=== PATIENT | male | born 1990 | race African-American/Black ===

== ENCOUNTER 2024-05-31 18:43 | Emergency (ER) | payer SELFPAY ==
--- NOTE | ~2024-05-31 | CT_ITS ---
EXAMINATION: CT abdomen pelvis w con DATE: 05/31/2024 20:23 INDICATION: Abdominal pain. TECHNIQUE: Computed tomography (CT) of the abdomen and pelvis was performed with 100 mL Omnipaque 350 intravenous contrast. Automated exposure control and iterative reconstruction technique were employe d. The dose-length product was 395.19 mGy-cm. COMPARISON: None. FINDINGS: The visualized portions of the lung bases demonstrate mild atelectasis. No pleural effusion . The heart size is normal. No pericardial effusion. The liver, gallbladder, spleen, pancreas, adrena l glands, and kidneys are normal. There are no dilated loops of bowel. There is diverticulosis of the colon without evidence of diverticulitis. The appendix is normal. There are no pathologically enlarg ed lymph nodes. There is no free intraperitoneal fluid. There is mild thoracic and lumbar spondylosis . IMPRESSION: 1. No etiology for the patient's symptoms. Reviewed, dictated and finalized at location A. [employer]
[2024-05-31 18:47] VITALS: BP 151/99; PULSE 132; RESP 18; TEMP 36.7; O2SAT 100
--- NOTE | 2024-05-31 19:15 | ED.GENADULT ---
HPI - General Adult General Chief complaint: Abdominal Pain Stated complaint: Abdominal pain Time Seen by Provider: 05/31/24 18:58 History of Present Illness HPI narrative: 33-year-old male presents emergency department for evaluation for diffuse abdominal pain. Patient reports he does have a prior history of colitis. Patient states that he has had worsened left upper quadrant abdominal pain. Patient states he does not drink alcohol very frequently, denies frequent NSAID use. Related Data Allergies Allergy/AdvReac Type Severity Reaction Status Date / Time No Known Allergies Allergy Verified 05/31/24 18:46 Review of Systems Review of Systems: All systems reviewed & are unremarkable except as noted in HPI and below Exam Narrative: APPEARANCE: Well appearing, no pain, no distress, well-nourished. HEAD: normocephalic, atraumatic. EYES: PERRLA/EOMI, conjunctivae clear. NOSE: Normal no drainage EARS:TMS clear with good light reflex. THROAT: Pharynx clear, no exudate. NECK: Supple. No adenopathy, no masses. RESPIRATORY: Airway patent, respirations nonlabored. Clear to auscultation bilaterally, no rales, rhonchi, wheezing. CARDIOVASCULAR: Regular rate and rhythm without murmurs rubs or gallops. ABDOMINAL: Soft, nontender, nondistended, normal bowel sounds MUSCULOSKELETAL: Moves all extremities. Strength/ROM intact, No edema, No calf tenderness. NEURO: Alert. Cranial nerves II through XII intact. Grossly intact SKIN: Warm, dry. Normal Color Course Vital Signs Vital signs: Vital Signs Temperature 98.0 F 05/31/24 18:47 Pulse Rate 132 H 05/31/24 18:47 Respiratory Rate 18 05/31/24 18:47 Blood Pressure 151/99 H 05/31/24 18:47 Pulse Oximetry 100 05/31/24 18:47 Oxygen Delivery Room Air 05/31/24 18:47 Temperature 98.0 F 05/31/24 18:47 Pulse Rate 132 H 05/31/24 18:47 Respiratory Rate 18 05/31/24 18:47 Blood Pressure 151/99 H 05/31/24 18:47 Pulse Oximetry 100 05/31/24 18:47 Oxygen Delivery Room Air 05/31/24 18:47 Medical Decision Making [facility] Narrative Medical decision making narrative: 33-year-old male presents emergency department for evaluation for abdominal swelling. Patient states he was diagnosed with colitis previously and feels that his symptoms are worsening. Patient complains of upper abdominal swelling. Patient denies any change in bowel or bladder habits. Patient is afebrile with no leukocytosis and hemoglobin 15. Patient has no acute abnormalities on his CMP lipase is negative. CT abdomen pelvis showed no acute abnormalities. Differential Diagnosis Differential Diagnosis: Colitis, diverticulitis gastritis, acute cholecystitis Vital Signs Vital Signs: Vital Signs Temperature 98.0 F 05/31/24 18:47 Pulse Rate 132 H 05/31/24 18:47 Respiratory Rate 18 05/31/24 18:47 Blood Pressure 151/99 H 05/31/24 18:47 Pulse Oximetry 100 05/31/24 18:47 Oxygen Delivery Room Air 05/31/24 18:47 Temperature 98.0 F 05/31/24 18:47 Pulse Rate 132 H 05/31/24 18:47 Respiratory Rate 18 05/31/24 18:47 Blood Pressure 151/99 H 05/31/24 18:47 Pulse Oximetry 100 05/31/24 18:47 Oxygen Delivery Room Air 05/31/24 18:47 Lab Data Lab results reviewed: Yes I reviewed the patient's lab results. 05/31/24 19:38 05/31/24 19:38 Labs: Lab Results 05/31/24 Range/Units 19:38 WBC 5.8 (4.5-10.0) K/mm3 RBC 6.74 H (4.6-6.20) M/mm3 Hgb 15.0 (14.0-18.0) g/dL Hct 48.3 (42.0-52.0) % MCV 71.7 L (80-100) fl MCH 22.3 L (26-34) pg MCHC 31.1 L (32-36) g/dl RDW 18.3 H (11.5-14.5) % Plt Count 422 H (150-375) k/mm3 MPV 11.1 H (7.4-10.4) fl Immature Gran % (Auto) 0.2 (0-0.5) % Neut % (Auto) 51.8 (45.5-73.1) % Lymph % (Auto) 33.6 (18.3-44.2) % [place] % (Auto) 6.0 (2.6-8.5) % Eos % (Auto) 7.7 H (0-4.4) % Baso % (Auto) 0.7 (0.2-1.2) % Lymph # (Auto) 1.95 (0.9-3.2) K/mm3 [place] # (Auto) 0.4 (0.1-0.6) K/mm3 Eos # (Auto) 0.5 H (0-0.3) K/mm3 Baso # (Auto) 0.0 (0.0-0.1) K/mm3 Abs Immat Gran (auto) 0.01 (0.00-0.031) K/mm3 Absolute Neuts (auto) 3.0 (1.3-6.7) K/mm3 Absolute Nucleated RBC 0.000 (0.0-0.012) K/mm3 Nucleated RBC % 0.0 (0.0-0.2) % Platelet Estimate Increased (Adequate) Anisocytosis 1+ Schistocytes None seen PT 14.0 (11.1-14.7) Seconds INR 1.0 APTT 28.3 (22.3-36.8) Seconds Sodium 140 (137-145) mmol/L Potassium 4.5 (3.4-5.0) mmol/L Chloride 106 (98-107) mmol/L Carbon Dioxide 28 (22-30) mmol/L Anion Gap 6 (4-12) mmol/L BUN 11 (9-20) mg/dL Creatinine 1.40 H (0.7-1.3) mg/dL Estim Creat Clear Calc 68 ml/min Estimated GFR > 60 (59 - ) Glucose 98 (65-110) mg/dL Lactic Acid 1.1 (0.7-2.0) mmol/L Calcium 9.9 (8.4-10.2) mg/dL Total Bilirubin 0.5 (0.2-1.3) mg/dL AST 41 (17-59) U/L ALT 37 (6-50) U/L Alkaline Phosphatase 64 (38-126) U/L Total Protein 8.0 (6.3-8.2) g/dL Albumin 4.9 (3.5-5.1) g/dL Lipase 63 (23-300) U/L Discharge Plan Discharge Clinical Impression: Abdominal pain Patient Disposition: Home, Self-Care Condition: Stable Instructions: Antibiotic Form, Abdominal Pain (ED) Additional Instructions: Avoid alcohol and avoid NSAIDs. Follow a bland diet. Omeprazole as directed for the next 14 days. Have close follow-up with your primary care physician. Also follow up with GI. If you have any worsening symptoms then please call or return to the emergency department. Patient Language: [place] Citizen Prescriptions: New omeprazole 20 mg capsule,delayed release(DR/EC) 20 mg PO DAILY 14 Days Qty: 14 0RF Follow-up/Referrals: PHYSICIAN NOT ON STAFF,NONSTAFF [Non-Staff] -
[2024-05-31 19:46] LABS: Basophils Percent Auto 0.7 % (0.2-1.2); Eosinophils Absolute Auto 0.5 K/mm3 (0-0.3); Eosinophils Percent Auto 7.7 % (0-4.4); Hematocrit 48.3 % (42.0-52.0); Immature Granulocyte Absolute 0.01 K/mm3 (0.00-0.031); Immature Granulocyte Percent A 0.2 % (0-0.5); Lymphocytes Absolute Auto 1.95 K/mm3 (0.9-3.2); Lymphocytes Percent Auto 33.6 % (18.3-44.2); Mean Corpuscular HGB Conc 31.1 g/dl (32-36); Mean Corpuscular Hemoglobin 22.3 pg (26-34); Mean Corpuscular Volume 71.7 fl (80-100); Mean Platelet Volume 11.1 fl (7.4-10.4); Monocytes Absolute Auto 0.4 K/mm3 (0.1-0.6); Neutrophils Percent Auto 51.8 % (45.5-73.1); Platelet Count Result 422 k/mm3 (150-375); Red Blood Count 6.74 M/mm3 (4.6-6.20); Red Cell Distribution Width 18.3 % (11.5-14.5); White Blood Count 5.8 K/mm3 (4.5-10.0)
[2024-05-31 19:57] LABS: Alanine Aminotransferase 37 U/L (6-50); Albumin Level 4.9 g/dL (3.5-5.1); Alkaline Phosphatase 64 U/L (38-126); Anion Gap 6 mmol/L (4-12); Aspartate Amino Transferase 41 U/L (17-59); Bilirubin,Total 0.5 mg/dL (0.2-1.3); Blood Urea Nitrogen 11 mg/dL (9-20); Calcium 9.9 mg/dL (8.4-10.2); Carbon Dioxide 28 mmol/L (22-30); Chloride 106 mmol/L (98-107); Estimated CRCL calculation 68 ml/min; Estimated Glomerular Filt Rate > 60; Glucose 98 mg/dL (65-110); Lipase 63 U/L (23-300); Potassium 4.5 mmol/L (3.4-5.0); Sodium 140 mmol/L (137-145)
[2024-05-31 19:58] LABS: Lactic Acid Reflex 1.1 mmol/L (0.7-2.0); Partial Thromboplastin Time 28.3 Seconds (22.3-36.8)
[2024-05-31 20:04] LABS: Anisocytosis 1+; Platelet Estimate Increased (Adequate); Schistocytes None Seen
== END 2024-05-31 21:18 | disposition home or self-care (01) ==
PROVIDERS: Emergency Provider Emergency Medicine
DX: R10.12 Left upper quadrant pain (principal)
CPT/HCPCS: 36415; 74177; 80053; 83605; 83690; 85025; 85610; 85730; 99284; Q9967

== ENCOUNTER 2024-10-07 02:25 | Emergency (ER) | payer SELFPAY ==
[2024-10-07 02:26] VITALS: BP 168/103; PULSE 109; RESP 19; TEMP 36.7; O2SAT 100
[2024-10-07 04:03] VITALS: O2SAT 100
[2024-10-07 04:04] VITALS: BP 157/104; PULSE 99; O2SAT 100
[2024-10-07 04:21] LABS: Basophils Percent Auto 0.5 % (0.2-1.2); Eosinophils Absolute Auto 0.1 K/mm3 (0-0.3); Eosinophils Percent Auto 1.4 % (0-4.4); Hematocrit 46.3 % (42.0-52.0); Hemoglobin 14.4 g/dL (14.0-18.0); Immature Granulocyte Absolute 0.02 K/mm3 (0.00-0.031); Immature Granulocyte Percent A 0.2 % (0-0.5); Mean Corpuscular HGB Conc 31.1 g/dl (32-36); Mean Corpuscular Hemoglobin 22.4 pg (26-34); Mean Platelet Volume 10.3 fl (7.4-10.4); Monocytes Absolute Auto 0.5 K/mm3 (0.1-0.6); Monocytes Percent Auto 5.8 % (2.6-8.5); Neutrophils Absolute Auto 6.1 K/mm3 (1.3-6.7); Neutrophils Percent Auto 71.1 % (45.5-73.1); Platelet Count Result 361 k/mm3 (150-375); Red Blood Count 6.43 M/mm3 (4.6-6.20); White Blood Count 8.6 K/mm3 (4.5-10.0)
[2024-10-07 04:36] LABS: Alanine Aminotransferase 49 U/L (6-50); Albumin Level 5.3 g/dL (3.5-5.1); Alkaline Phosphatase 64 U/L (38-126); Anion Gap 12 mmol/L (4-12); Aspartate Amino Transferase 42 U/L (17-59); Blood Urea Nitrogen 11 mg/dL (9-20); Calcium 9.9 mg/dL (8.4-10.2); Carbon Dioxide 27 mmol/L (22-30); Chloride 99 mmol/L (98-107); Estimated CRCL calculation 77 ml/min; Estimated Glomerular Filt Rate > 60; Glucose 86 mg/dL (65-110); Lipase 45 U/L (23-300); Potassium 3.5 mmol/L (3.4-5.0); Sodium 138 mmol/L (137-145)
[2024-10-07] MEDS: SODIUM CHLORIDE 0.9% IV 2,000 ML 999 ML IV CONT (04:46)
[2024-10-07] MEDS: ONDANSETRON INJ 4 MG/2 ML VIAL IV PUSH (04:49)
[2024-10-07] MEDS: MORPHINE SULFATE (*CRX) 4 MG/ML INJ IV PUSH (04:50)
[2024-10-07 04:55] LABS: Add Urine Microscopic? YES; Appearance Urine Clear (Clear); Bacteria Urine None Seen /hpf; Bilirubin Urine Negative (Negative); Blood Urine 2+ (Negative); Color Urine Yellow (Yellow); Glucose Urine UA Negative (Negative); Ketones Urine 2+ mg/dL (Negative); Leukocyte Esterase Ur Negative LEU/UL (Negative); Nitrate Urine Negative (Negative); Non Pathogenic Casts 0-2; Protein Urine Trace mg/dL (Negative); Specific Grav Ur 1.022 (1.001-1.035); Squamous Epithelial Cell Urine None Seen /hpf (Few); WBC Urine 0-5 /hpf (0-3); pH Urine 5.5 (5.0-9.0)
[2024-10-07 04:59] LABS: Lactic Acid Reflex 0.9 mmol/L (0.7-2.0)
[2024-10-07 05:00] VITALS: BP 155/95; PULSE 131; RESP 17; TEMP 37.1; O2SAT 100
--- NOTE | 2024-10-07 06:04 | PC.NURSE ---
Pt states he is not in pain, but more discomfort. A 7/10 on the pain scale. Pt verbalized he did not want another pain med at this time.
--- NOTE | 2024-10-07 06:14 | PC.NURSE ---
EDP notified of pt BP and abd discomfort.
[2024-10-07 06:15] VITALS: BP 164/97; PULSE 97; RESP 19; O2SAT 100
--- NOTE | 2024-10-07 06:43 | ED_ITS ---
HPI - Abdominal Pain General Chief Complaint: Abdominal Pain Stated Complaint: abdominal pain Time Seen by Provider: 10/07/24 04:20 Source: patient Mode of arrival: ambulatory Limitations: no limitations History of Present Illness HPI narrative: This is a 34-year-old male, with no significant past medical history who presents emergency department complaining of bilateral upper quadrant abdominal pain. The patient states he has had left-sided upper abdominal pain going on for the past several months. He describes this as dull, mild to moderate without any known aggravating alleviating factors. This evening, he states it worsened with a sensation of a mass or swelling in the left upper quadrant. He denies dysuria, hematuria, nausea or vomiting. He states his last bowel movement was 1 day ago. He is able to pass gas. He denies bleeding of any kind. He has no other complaints at this time. Related Data Allergies Allergy/AdvReac Type Severity Reaction Status Date / Time No Known Allergies Allergy Verified 10/07/24 02:26 Review of Systems 2 Review of Systems: All systems reviewed & are unremarkable except as noted in HPI and below PMFSH Past Medical History Medical History No significant past medical history Surgical History Surgical History No significant past surgical history Social History Social History Smoking status: Never smoker Alcohol intake: never Substance use: never Exam 2 Narrative: GENERAL: Well-developed, well-nourished, and in no acute distress. HEAD: Normocephalic, atraumatic. EYES: PERRLA and EOMI. ENT: Nares clear, no rhinorrhea or epistaxis. Mucous membranes moist. Oropharynx without tonsillar hypertrophy exudate or other lesions. CHEST: Clear to auscultation. No respiratory distress. No wheezes rales or rhonchi HEART: Regular rate and rhythm. No murmur heard. Normal peripheral pulses. ABDOMEN: Soft, tender to palpation greatest in the left upper quadrant and epigastrium with guarding though no rebound, nondistended, normal active bowel sounds. Left CVA tenderness to palpation, no right CVA tenderness EXTREMITIES: Normal range of motion. No edema. SKIN: Warm, dry, no rash. NEURO: Alert and oriented x3. No focal deficit. Moving all 4 limbs spontaneously PSYCH: Normal mood and affect. Course Course Emergency Course: 06:45 - CBC demonstrates normal white blood cell count, hemoglobin and platelets, though does demonstrate microcytosis. Chemistries within normal limits. Urinalysis shows 6-10 rbc's without other changes concerning for urinary tract infection. Chest x-ray by my review not concerning for acute cardiopulmonary process. STAT Rad interpretation of CT abdomen pelvis demonstrates ?no bowel obstruction. Normal appendix. No free air or free fluid. The sigmoid and left colon are under distended with mild wall thickening or colitis not entirely excluded in the proper clinical setting. Otherwise no acute abnormality seen. 6 mm stable low-attenuation right adrenal nodule since 2023.? On re-evaluation, the patient states his pain is improved. He believes his anxiety has worsened his symptoms. It is possible that the patient has passed a kidney stone. Will discharge with approximate, Bentyl and recommendation for primary care and Urology follow-up. I discussed the findings and recommendations with the patient. Discussed return and emergency precautions including signs/symptoms of acute abdomen and intractable vomiting. The patient voiced understanding and agreement with the plan. All questions answered to his satisfaction. Vital Signs Vital signs: Vital Signs Temperature 98.1 F 10/07/24 02:26 Pulse Rate 109 H 10/07/24 02:26 Respiratory Rate 19 10/07/24 02:26 Blood Pressure 168/103 H 10/07/24 02:26 Pulse Oximetry 100 10/07/24 02:26 Oxygen Delivery Room Air 10/07/24 02:26 Temperature 98.8 F 10/07/24 05:00 Pulse Rate 97 10/07/24 06:15 Respiratory Rate 19 10/07/24 06:15 Blood Pressure 164/97 H 10/07/24 06:15 Pulse Oximetry 100 10/07/24 06:15 Oxygen Delivery Room Air 10/07/24 02:26 MDM - Abdominal Pain MDM Narrative Medical decision making narrative: Plan: Labs, imaging, pain control, IV fluids, reassess Differential Diagnosis Differential diagnosis: Likely acute appendicitis, calculus of kidney, diverticulitis, endometriosis, gastroenteritis, pancreatitis, small bowel obstruction and other (Bowel perforation, colitis, UTI, pyelonephritis, metabolic abnormality, other) Lab Data 10/07/24 04:10 10/07/24 04:10 Labs: Lab Results 10/07/24 10/07/24 10/07/24 Range/Units 04:10 04:32 04:40 WBC 8.6 (4.5-10.0) K/mm3 RBC 6.43 H (4.6-6.20) M/mm3 Hgb 14.4 (14.0-18.0) g/dL Hct 46.3 (42.0-52.0) % MCV 72.0 L (80-100) fl MCH 22.4 L (26-34) pg MCHC 31.1 L (32-36) g/dl RDW 18.0 H (11.5-14.5) % Plt Count 361 (150-375) k/mm3 MPV 10.3 (7.4-10.4) fl Immature Gran % (Auto) 0.2 (0-0.5) % Neut % (Auto) 71.1 (45.5-73.1) % Lymph % (Auto) 21.0 (18.3-44.2) % [place] % (Auto) 5.8 (2.6-8.5) % Eos % (Auto) 1.4 (0-4.4) % Baso % (Auto) 0.5 (0.2-1.2) % Lymph # (Auto) 1.80 (0.9-3.2) K/mm3 [place] # (Auto) 0.5 (0.1-0.6) K/mm3 Eos # (Auto) 0.1 (0-0.3) K/mm3 Baso # (Auto) 0.0 (0.0-0.1) K/mm3 Abs Immat Gran (auto) 0.02 (0.00-0.031) K/mm3 Absolute Neuts (auto) 6.1 (1.3-6.7) K/mm3 Absolute Nucleated RBC 0.000 (0.0-0.012) K/mm3 Nucleated RBC % 0.0 (0.0-0.2) % Sodium 138 (137-145) mmol/L Potassium 3.5 (3.4-5.0) mmol/L Chloride 99 (98-107) mmol/L Carbon Dioxide 27 (22-30) mmol/L Anion Gap 12 (4-12) mmol/L BUN 11 (9-20) mg/dL Creatinine 1.22 (0.7-1.3) mg/dL Estim Creat Clear Calc 77 ml/min Estimated GFR > 60 (59 - ) Glucose 86 (65-110) mg/dL Lactic Acid 0.9 (0.7-2.0) mmol/L Calcium 9.9 (8.4-10.2) mg/dL Total Bilirubin 1.0 (0.2-1.3) mg/dL AST 42 (17-59) U/L ALT 49 (6-50) U/L Alkaline Phosphatase 64 (38-126) U/L Total Protein 9.0 H (6.3-8.2) g/dL Albumin 5.3 H (3.5-5.1) g/dL Lipase 45 (23-300) U/L Urine Color Yellow (Yellow) Urine Appearance Clear (Clear) Urine pH 5.5 (5.0-9.0) Ur Specific [place] 1.022 (1.001-1.035) Urine Protein Trace (Negative) mg/dL Urine Glucose (UA) Negative (Negative) mg/dL Urine Ketones 2+ H (Negative) mg/dL Ur Blood (Man) 2+ H (Negative) Urine Nitrate Negative (Negative) Urine Bilirubin Negative (Negative) Urine Urobilinogen 1.0 (<2.0) mg/dL Leukocyte Esterase Rfl Negative (Negative) RANJIT/UL Urine RBC 6-10 H (0-2) /hpf Urine WBC 0-5 (0-3) /hpf Ur Squamous Epith Cells None seen (Few) /hpf Urine Bacteria None seen /hpf Urine Casts 0-2 Discharge Plan Discharge Clinical Impression: Acute left flank pain, Hematuria, Elevated blood pressure reading Patient Disposition: Home Condition: Stable Instructions: Antibiotic Form, Hematuria (ED) Additional Instructions: You were seen in the emergency department. Your labs showed some red blood cells in your urine but were otherwise not concerning for liver or kidney injury. A CT scan of the abdomen did not show an obvious bowel injury obstruction or mass. Mild inflammation of the colon is possible. The cause of your pain is unclear though may be related to kidney stone given the presence of blood in your urine. I recommend following up with a primary care doctor as well as a urologist. If you develop severe abdominal pain, abdominal pain with fevers, persistent vomiting, or if you have other emergent concerns for life, limb, or eyesight, return to the emergency department. Patient Language: [place] Prescriptions: New naproxen 500 mg tablet 500 mg PO BID PRN (Reason: pain) Qty: 20 0RF dicyclomine 10 mg capsule 10 mg PO TID Qty: 21 0RF No Action omeprazole 20 mg capsule,delayed release(DR/EC) 20 mg PO DAILY 14 Days Qty: 14 0RF Follow-up/Referrals: Pepe Genao MD [Physician] - 2 Weeks Shravan Michelle MD [Physician] - 2 Weeks Time of Disposition: 06:47
--- NOTE | 2024-10-07 06:48 | PC.NURSE ---
Pt has been unhooked from fluids multiple times to use restroom. Fluids still flowing.
[2024-10-07 07:09] VITALS: BP 146/100; PULSE 106; RESP 14; TEMP 37; O2SAT 100
== END 2024-10-07 07:11 | disposition home or self-care (01) ==
PROVIDERS: Emergency Provider Preventive Medicine Aerospace Medicine
DX: R10.12 Left upper quadrant pain (principal); R31.9 Hematuria, unspecified
CPT/HCPCS: 36415; 71045; 74177; 80053; 81001; 83605; 83690; 85025; 96361; 96374; 96375; 99284; J2270; J2405; J7030; Q9967